=== PATIENT | male | born 1960 | race Caucasian/White ===

== ENCOUNTER 2021-07-20 01:38 | Emergency (ER) | payer OTHER ==
[~2021-07-20] VITALS: Ht 177.8 cm; Wt 39.9 kg
[2021-07-20 01:38] VITALS: BP 123/88
--- NOTE | 2021-07-20 01:38 | NUR ---
TO BED , BIBA WITH C/O ETOH, LAC ERATION AND ABRASSIONS
[2021-07-20] MEDS ORDERED: NACL 0.9% 2,000 ML IV ONE (02:20)
[2021-07-20] MEDS ORDERED: NACL 0.9% 1,000 ML IV ONE (02:20)
[2021-07-20] MEDS ORDERED: LORazepam 2 MG/ML VIAL IVP ONE (02:20)
[2021-07-20] MEDS ORDERED: diphenhydrAMINE 50 MG/ML VIAL IVP ONE (02:20)
--- NOTE | 2021-07-20 02:20 | NUR ---
Assumed patient care, here for alcohol intoxication. On assesment patient is hyperverbal, noted blood on his left hand, head checked for lacerations, none found noted abrasion.
[2021-07-20 02:34] LABS: BASOPHILS # (AUTO) 0.4 K/uL (0.00-0.22); BASOPHILS % (AUTO) 2.3 % (0.0-2.0); EOSINOPHILS # (AUTO) 0.3 K/uL (0-0.4); EOSINOPHILS % (AUTO) 1.5 % (0.0-4.0); HEMATOCRIT 45.6 % (36-52); HEMOGLOBIN 15.6 g/dL (12.0-18.0); LYMPHOCYTES # (AUTO) 0.6 K/uL (2.0-11.5); LYMPHOCYTES % (AUTO) 3.6 % (20.5-51.1); MEAN CORPUSCULAR HEMOGLOBIN 31 pg (27-31); MEAN CORPUSCULAR HGB CONC 34 g/dL (33-37); MEAN CORPUSCULAR VOLUME 91.4 fL (80-94); MONOCYTES # (AUTO) 0.9 K/uL (0.8-1.0); MONOCYTES % (AUTO) 5.5 % (1.7-9.3); NEUTROPHILS # (AUTO) 14.7 K/uL (1.8-7.7); NEUTROPHILS % (AUTO) 87.1 % (42.2-75.2); PLATELET COUNT (AUTO) 295 K/uL (140-450); RED BLOOD CELL COUNT(AUTO) 4.99 MIL/uL (4.20-6.10); RED CELL DISTRIBUTION WIDTH 12.8 % (11.6-13.7); WHITE BLOOD COUNT (AUTO) 16.8 K/uL (4.8-10.8)
[2021-07-20 03:10] LABS: ALBUMIN 3.8 g/dL (3.4-5.0); ANION GAP 18.5 (8-16); ASPARTATE AMINOTRANSFERASE 32 U/L (15-37); CARBON DIOXIDE 21.7 mmol/L (21-32); CHLORIDE 101 mmol/L (98-107); GFR ARICAN-AMERICAN 97 mL/min (>90); GLUCOSE 246 mg/dL (74-106); LIPASE 114 U/L (73-393); POTASSIUM 4.2 mmol/L (3.5-5.1); SODIUM SERUM 137 mmol/L (136-145); TOTAL BILIRUBIN 0.3 mg/dL (0.0-1.0); UREA NITROGEN, BLOOD 15 mg/dL (7-18)
[2021-07-20 03:31] LABS: ACETAMINOPHEN < 0.5 ug/ml (10-30); SALICYLATE < 2.8 mg/dL (2.8-20.0)
[2021-07-20 05:36] LABS: BARBITURATE, URINE NEGATIVE ng/ml (NEG <=200); BENZODIAZEPINE, URINE POSITIVE ng/mL (NEG <=200); COCAINE, URINE NEGATIVE ng/mL (NEG <=300)
[2021-07-20 05:37] LABS: CANNABINOID, URINE NEGATIVE ng/mL (NEG <=50); OPIATE, URINE NEGATIVE ng/mL (NEG <=2000); PHENCYCLIDINE SCREEN,URINE NEGATIVE ng/mL (NEG <=25)
--- NOTE | 2021-07-20 07:16 | NUR ---
hand-off to Nivia DSOUZA.
--- NOTE | 2021-07-20 07:19 | NUR ---
REPORT RECEIVED FROM LIANNA HERNÁNDEZ FOR TRANSFER OF CARE
--- NOTE | 2021-07-20 08:30 | NUR ---
PT PASSED ROAD TEST AND IS AMBULATORY AT THIS TIME WITH STEADY GAIT
[2021-07-20 08:51] VITALS: BP 136/52
--- NOTE | 2021-07-20 08:51 | NUR ---
Patient discharged with v/s stable. Written and verbal after care instructions given FOR ALCOHOL INTOXICATION and explained. Patient verbalized understanding. Ambulatory with steady gait. All questions addressed prior to discharge. Advised to follow up with PMD.
== END 2021-07-20 08:51 | disposition home or self-care (01) ==
LOC: MED 01:38
DX: F10.129 Alcohol abuse with intoxication, unspecified (principal); Z88.5 Allergy status to narcotic agent
CPT/HCPCS: 36415; 80053; 80305; 83690; 85025; 96361; 96374; 96375; 99284; G0480; G0482; J1200; J2060; J7030

== ENCOUNTER 2024-02-14 21:48 | Emergency (ER) | payer OTHER ==
[~2024-02-14] VITALS: Ht 177.8 cm; Wt 95.3 kg
[2024-02-14 21:52] VITALS: BP 150/88; PULSE 91; RESP 17; TEMP 99.4; O2SAT 96
[2024-02-14 22:20] VITALS: O2SAT 99
[2024-02-14] MEDS: KETOROLAC 30 MG/ML VIAL IM ONE (22:34)
[2024-02-14] MEDS ORDERED: CEPH-588 PO (23:05)
[2024-02-15 00:49] VITALS: BP 110/78; PULSE 78; RESP 16; TEMP 98.8; O2SAT 98
== END 2024-02-15 00:49 | disposition home or self-care (01) ==
LOC: MED 21:48
DX: L03.115 Cellulitis of right lower limb (principal); G89.29 Other chronic pain; Z79.899 Other long term (current) drug therapy; Z88.8 Allergy status to other drugs, medicaments and biological substances
CPT/HCPCS: 73630; 96372; 99283; J1885; Q0092